=== PATIENT | male | born 1960 | race Caucasian/White ===

== ENCOUNTER 2021-06-01 00:53 | Emergency (ER) | payer MEDICARE, OTHER ==
[2021-06-01 01:11] LABS: HEMOGLOBIN 14.3 gm/dl (14.0-17.5); RED BLOOD COUNT 4.94 M/UL (4.20-5.50); WHITE BLOOD COUNT 16.5 K/UL (4.5-11.0)
== END 2021-06-01 05:05 | disposition short-term general hospital (02) ==
LOC: ER1 00:53
PROVIDERS: Student in an Organized Health Care Education/Training Program
DX: U07.1 COVID-19 (principal); M62.82 Rhabdomyolysis; N17.9 Acute kidney failure, unspecified; E87.5 Hyperkalemia; J96.01 Acute respiratory failure with hypoxia
CPT/HCPCS: 31500; 36600; 51702; 70450; 71045; 71250; 80053; 80307; 81001; 82550; 82553; 82803; 82962; 83605; 83880; 84484; 85025; 87040; 93005; 94002; 96372; 96374; 96375; 99285; G0480; J0461; J1100; J1630; J2704; J3370; J7030; J7070; Q9967; U0002